=== PATIENT | male | born 1960 | race Caucasian/White ===

== ENCOUNTER 2023-03-20 19:16 | Inpatient (IN) | payer OTHER, MEDICAID ==
[~2023-03-20] VITALS: Ht 167.6 cm; Wt 73.9 kg
[~2023-03-20 19:16] MED LIST: SEVE800T8
[2023-03-20 21:10] LABS: HEMATOCRIT 38.2 % (42.0-52.0); HEMOGLOBIN 13.4 g/dL (14.0-18.0); MEAN CORPUSCULAR HEMOGLOBIN 31.7 pg (28.0-32.0); MEAN CORPUSCULAR VOLUME 90.7 fL (80.0-94.0); PLATELET 217 x1000/uL (130-400); RED BLOOD CELL COUNT 4.21 mill/uL (4.7-6.1); RED CELL DISTRIBUTION WIDTH 16.4 % (11.6-14.6); WHITE BLOOD COUNT 8.6 x1000/uL (4.5-11.0)
[2023-03-20 21:13] LABS: CHLORIDE 97 mEq/L (98-107); INDEX HEMOLYSI 1 (1-3); INDEX ICTERIC 1 (1-4); INDEX LIPEMIC 1 (1-3); SODIUM 135 mEq/L (136-145)
[2023-03-20 21:21] LABS: ALANINE AMINOTRANSFERASE 14 IU/L (13-61); ALBUMIN 3.7 g/dL (3.4-5.0); ASPARTATE AMINOTRANSFERASE 15 IU/L (15-37); BILIRUBIN TOTAL 0.7 mg/dL (0.1-1.0); CALCIUM 9.6 mg/dL (8.5-10.1); CARBON DIOXIDE 28 mEq/L (21-32); GLUCOSE 115 mg/dL (70-105); PROTEIN TOTAL 8.9 g/dL (6.0-8.3); UREA NITROGEN BLOOD 21 mg/dL (7-21)
[2023-03-20 21:24] LABS: CREATININE 5.2 mg/dL (0.6-1.3)
[2023-03-20 21:41] LABS: INR 1.1; PARTIAL THROMBOPLASTIN TIME 28.8 sec (23.4-31.0); PROTHROMBIN TIME 11.8 sec (9.6-11.0)
[2023-03-21] MEDS ORDERED: IOHEXOL-300 100 ML BOTTLE ONE (06:41)
[2023-03-21 09:28] VITALS: BP 124/62; PULSE 90; RESP 18; TEMP 97.9
[2023-03-21] MEDS ORDERED: ACETAMINOPHEN 325MG TABLET PO PRN ×2 (10:15)
[2023-03-21] MEDS ORDERED: IPRATROPIUM/ALBUTEROL 0.5-3(2.5)MG/3ML NEB HHN PRN (10:15)
[2023-03-21] MEDS ORDERED: CLONIDINE 0.1MG TABLET PO PRN (10:15)
[2023-03-21] MEDS ORDERED: ONDANSETRON HCL 4MG/2ML INJ IV PRN (10:15)
[2023-03-21] MEDS ORDERED: DOCUSATE SODIUM 100MG CAPSULE PO PRN (10:15)
[2023-03-21 12:49] LABS: BASOPHILS % 1.1 % (0.0-2.0); EOSINOPHILS % 1.5 % (0.0-5.0); HEMATOCRIT. 34.3 % (42.0-52.0); HEMOGLOBIN. 11.3 g/dL (14.0-18.0); LYMPHOCYTES % 7.5 % (20.0-50.0); MEAN CORPUSCULAR HEMOGLOBIN 29.7 pg (28.0-32.0); MEAN CORPUSCULAR HGB CONC 32.9 g/dL (31.0-37.0); MEAN CORPUSCULAR VOLUME 90.4 fL (80.0-94.0); MEAN PLATELET VOLUME 8.6 fl (7.4-10.4); MONOCYTES % 10.6 % (2.0-8.0); NEUTROPHILS % 79.3 % (40.0-76.0); PLATELET 185 x1000/uL (130-400); WHITE BLOOD COUNT 6.1 x1000/uL (4.5-11.0)
[2023-03-21 13:13] LABS: POTASSIUM 3.7 mEq/L (3.5-5.1)
[2023-03-21 13:16] VITALS: BP 124/62; PULSE 90; RESP 18; TEMP 97.9
[2023-03-21] MEDS ORDERED: IRON SUCROSE COMPLEX 100 MG/5 ML ML IV SCH (13:45)
[2023-03-21] MEDS ORDERED: DILTIAZEM HCL 30MG TABLET PO SCH (14:00)
[2023-03-21 14:14] LABS: CREATININE 6.8 mg/dL (0.6-1.3)
[2023-03-21 15:39] VITALS: BP 124/62; PULSE 90; TEMP 97.9; O2SAT 97
[2023-03-21 15:43] VITALS: BP 124/62; PULSE 90; TEMP 97.9; O2SAT 97
[2023-03-27 14:57] LABS: HEPATITIS A AB IGM NEGATIVE (Negative); HEPATITIS B CORE AB IGM NEGATIVE (Negative); HEPATITIS B SURFACE ANTIGEN NEGATIVE (Negative); HEPATITIS C AB NON REACTIVE (Neg) (Negative)
== END 2023-03-21 16:45 | disposition home or self-care (01) | DRG 919 ==
LOC: ER 19:16 → MICUSO 03-21 04:30 → 8WST 03-21 09:13
PROVIDERS: ADMIT Internal Medicine; ATTEND Internal Medicine
DX: I97.620 Postprocedural hemorrhage of a circulatory system organ or structure following other procedure (principal); N18.6 End stage renal disease; I13.2 Hypertensive heart and chronic kidney disease with heart failure and with stage 5 chronic kidney disease, or end stage renal disease; I50.20 Unspecified systolic (congestive) heart failure; I48.92 Unspecified atrial flutter; D64.9 Anemia, unspecified; E11.22 Type 2 diabetes mellitus with diabetic chronic kidney disease; I25.10 Atherosclerotic heart disease of native coronary artery without angina pectoris; I48.91 Unspecified atrial fibrillation; Z95.1 Presence of aortocoronary bypass graft; Z95.5 Presence of coronary angioplasty implant and graft; Z99.2 Dependence on renal dialysis; Z79.899 Other long term (current) drug therapy; Y83.8 Other surgical procedures as the cause of abnormal reaction of the patient, or of later complication, without mention of misadventure at the time of the procedure; Y82.8 Other medical devices associated with adverse incidents
CPT/HCPCS: 36415; 73700; 80048; 80053; 82962; 85025; 85027; 86705; 86709; 87340; 99285; Q9967